=== PATIENT | female | born 1960 | race Caucasian/White ===

== ENCOUNTER 2017-05-15 22:53 | Emergency (ER) | payer MEDICARE ==
[2010-11-25 11:14] VITALS: BMI 22.7
[2017-05-15 23:39] LABS: BASOPHILS 0.2 % (0-2); EOSINOPHILS 2.3 % (0-7); HEMATOCRIT 43.2 % (36.0-48.0); HEMOGLOBIN 14.5 g/dL (12-16); IMMATURE GRANULOCYTES 0.2 % (0-5); LYMPHOCYTES 33.7 % (15-50); MCH 29.8 pg (26.0-34.0); MCHC 33.6 g/dL (31.0-37.0); MCV 88.7 fL (80.0-100.0); MEAN PLATELET VOLUME 9.4 fL (7.4-10.4); MONOCYTES 5.3 % (2-11); NEUTROPHILS 58.3 % (40-80); PLATELET COUNT 288 10x3/uL (130-400); RBC 4.87 10x6/uL (4.00-5.40); RDW 12.7 % (11.5-14.5); WBC 12.2 10x3/uL (4.8-10.8)
[2017-05-15 23:54] LABS: APTT 28.3 SECONDS (22.8-39.4); INR 0.88 (0.85-1.17); PROTIME 11.6 SECONDS (11.6-15.0)
[2017-05-15 23:55] LABS: ALKALINE PHOSPHATASE 86 U/L (46-116); ALT (SGPT) 58 U/L (10-68); CALC OSMOLALITY 295 mosm/kg (275-300); CALCIUM 9.7 mg/dL (8.5-10.1); CARBON DIOXIDE 27.6 mmol/L (21.0-32.0); CHLORIDE - SERUM 107 mmol/L (98-107); CREATININE - SERUM 0.9 mg/dL (0.6-1.3); GLUCOSE 109 mg/dL (74-106); SODIUM 146 mmol/L (136-145); UREA NITROGEN 23 mg/dL (7-18); eGFR NON AFRICAN AMERICAN 68 mL/min (90-120)
[2017-05-16 00:03] LABS: D-DIMER-QUANTITATIVE < 0.27 ug/mLFEU (0.20-0.54)
[2017-05-16 00:07] LABS: CKMB 1.1 U/L (0.0-3.6); CREATINE KINASE 126 UL (21-215); PRO BNP 46 pg/mL (0-125); TROPONIN-I 0.018 ng/mL (0.000-0.060)
[2017-05-16 02:25] LABS: APPEARANCE CLEAR (CLEAR); BILIRUBIN NEGATIVE (NEGATIVE); COLOR YELLOW (YELLOW); GLUCOSE 50 mg/dL (NEGATIVE); KETONE NEGATIVE (NEGATIVE); NITRITE NEGATIVE (NEGATIVE); PROTEIN NEGATIVE (NEGATIVE); UROBILINOGEN NORMAL (NORMAL)
== END 2017-05-16 03:04 | disposition critical access hospital (66) ==
LOC: D.ER 22:53
PROVIDERS: Family Medicine
DX: I63.9 Cerebral infarction, unspecified (principal); R26.2 Difficulty in walking, not elsewhere classified; R53.1 Weakness